=== PATIENT | female | born 1995 | race Caucasian/White ===

== ENCOUNTER 2021-08-30 22:28 | Inpatient (IN) | payer MEDICAID, OTHER ==
--- NOTE | 2021-08-30 23:16 | ED ---
Psych HPI - General Stated Complaint: Mental Health Time Seen by Provider: 08/30/21 22:36 Source: RN notes reviewed, old records reviewed Limitations: no limitations - History of Present Illness Initial Comments: This is a 25-year-old female to the emergency department for evaluation today. Patient's very elevated and argumentative on initial evaluation. Patient presents from [place] for suicidal ideation. Patient not participating history taking MD Complaint: suicidal ideation, feels depressed -: unknown Associated Psychiatric Symptoms: depression, suicidal ideation History of same: Yes Quality: constant, getting worse Improves With: none Worsens With: none Context: significant life stressor (Going through rehabilitation) Associated Symptoms: denies other symptoms Treatments Prior to Arrival: placed on mental health hold If Self Harm: admits thoughts of self harm - Related Data Allergies Allergy/AdvReac Type Severity Reaction Status Date / Time No Known Allergies Allergy Verified 08/31/21 00:06 Review of Systems ROS Statement: Those systems with pertinent positive or pertinent negative responses have been documented in the HPI. ROS Other: All systems not noted in ROS Statement are negative. General Exam General appearance: alert, in no apparent distress Head exam: Present: atraumatic, normocephalic, normal inspection Eye exam: Present: normal appearance, PERRL, EOMI. Absent: scleral icterus, conjunctival injection, periorbital swelling ENT exam: Present: normal exam, mucous membranes moist Neck exam: Present: normal inspection. Absent: tenderness, meningismus, lymphadenopathy Respiratory exam: Present: normal lung sounds bilaterally. Absent: respiratory distress, wheezes, rales, rhonchi, stridor Cardiovascular Exam: Present: regular rate, normal rhythm, normal heart sounds. Absent: systolic murmur, diastolic murmur, rubs, gallop, clicks GI/Abdominal exam: Present: soft, normal bowel sounds. Absent: distended, tenderness, guarding, rebound, rigid Extremities exam: Present: normal inspection, full ROM, normal capillary refill. Absent: tenderness, pedal edema, joint swelling, calf tenderness Back exam: Present: normal inspection Neurological exam: Present: alert, oriented X3, CN II-XII intact Psychiatric exam: Present: normal affect, normal mood Skin exam: Present: warm, dry, intact, normal color. Absent: rash Course Vital Signs 08/30/21 08/31/21 08/31/21 23:17 00:20 01:40 Temperature 98.7 F Pulse Rate 64 82 71 Respiratory 16 18 16 Rate Blood Pressure 117/75 121/77 115/71 O2 Sat by Pulse 99 98 98 Oximetry 08/31/21 08/31/21 03:51 04:31 Temperature Pulse Rate 64 70 Respiratory 16 18 Rate Blood Pressure 109/67 111/68 O2 Sat by Pulse 98 97 Oximetry - Reevaluation(s) Reevaluation #1: 08/31/21 01:27 Medical record is reviewed Reevaluation #2: 08/31/21 01:27 Medically clear for psychiatric evaluation Medical Decision Making - Medical Decision Making 25 female to the emergency department for evaluation. Patient will be transferred for inpatient psychiatric evaluation and treatment Disposition Clinical Impression: Depression, Suicidal ideation, Acute anxiety Disposition: TRANSFER TO PSYCH HOSP/UNIT Condition: Fair Is patient prescribed a controlled substance at d/c from ED?: No
[2021-08-31] MEDS ORDERED: LORazepam 1 MG TAB PO STA (00:07)
[2021-08-31] MEDS ORDERED: MAG HYDROX/AL HYDROX/SIMETH 30 ML CUP PO PRN (02:48)
[2021-08-31] MEDS ORDERED: HALOPERIDOL LACTATE 5 MG/ML 1 ML VIAL IM PRN (02:48)
[2021-08-31] MEDS ORDERED: ACETAMINOPHEN TAB 325 MG TAB PO PRN (02:48)
[2021-08-31] MEDS ORDERED: MAGNESIUM HYDROXIDE 2,400 MG/10 ML CUP PO PRN (02:48)
[2021-08-31] MEDS ORDERED: LORazepam 2 MG/ML INJ IM PRN (02:52)
[2021-08-31] MEDS ORDERED: haloperidoL 5 MG TAB PO PRN (05:07)
[2021-08-31] MEDS: LORazepam 1 MG TAB PO PRN (05:13)
[2021-08-31] MEDS ORDERED: hydrOXYzine pamoate 25 MG CAP PO PRN (06:00)
[2021-08-31] MEDS: NICOTINE 21MG/24HR PATCH TRANSDERM STA ×2 (09:51→09:56)
[2021-08-31] MEDS: NICOTINE 14MG/24HR PATCH TRANSDERM SCH (09:52)
--- NOTE | 2021-08-31 10:36 | P.HP ---
Psychiatric H&P - . H&P Date: 08/31/21 History & Physical: Allergies Allergy/AdvReac Type Severity Reaction Status Date / Time No Known Allergies Allergy Verified 08/31/21 00:06 Vital Signs Temp 97.3 F L 08/31/21 05:11 Pulse 74 08/31/21 05:11 Resp 18 08/31/21 05:11 BP 117/80 08/31/21 05:11 Pulse Ox 97 08/31/21 05:11 Intake & Output 08/30/21 08/31/21 08/31/21 18:59 06:59 18:59 Weight 52.163 kg Laboratory Last Values Coronavirus (PCR) Not Detected (Not Detectd) 08/31/21 03:00 08/31/21 10:22 Chief complaint: Patient stated that she knows where to hurt herself. She stated she likes the taste of blood. History of present illness: This patient was brought from [facility] where she was admitted for rehabilitation. She became suicidal and was brought to emergency room.This is a 25-year-old female to the emergency department for evaluation. Patient is very agitated and argumentative on initial evaluation. Patient presents from [place] for suicidal ideation. Patient not partic ipating in history taking. Current medications. She refused to provide any history of medications if she was taking any at [place]. Past psychiatric history: She refused to provide any history of mental illness in the past and told me to leave her alone. Substance abuse history: This patient refused to tell me what kind of drugs she was using. She was a however in rehab at [place]. She is withdrawing from a drugs and laying in her room. Medical history: This patient refused to provide any history of full medical problems. Social history: Patient refused to provide any history and refused to talk to me about her upbringing and her history later on. Psychological trauma: Patient refused to provide any history of physical or sexual abuse now or in the past. Mental status: This patient is drowsy but I was a able to wake her up couple times. She is alert and oriented to time place and person. She appears to be of her stated age. She has psychomotor retardation. She is laying in the bed and her hygiene and grooming is poor. She is uncooperative. Her mood is blank. I could not assess her thought content because she does not want to talk. When she talks she talks in a very low monosyllable voice which is composed of mostly single words and has long pauses in between. She is unable to concentrate on things. I cannot assess her recent and remote memory at this time. Her attention span obviously is poor. She has no insight into her problems and her judgment is impaired. Her cognitive functions cannot be assessed at this time. Diagnostic impression: Major depression with suicidal thoughts Treatment plan: She will be maintained on when necessary doses of Haldol and Ativan. She will be given Remeron 45 mg at nighttime. She will be monitored closely on the unit. She will be encouraged to participate in unit activities.
[2021-08-31] MEDS ORDERED: MIRTAZAPINE 45 MG TABLET PO SCH (21:00)
[2021-08-31] MEDS: MIRTAZAPINE 15 MG TAB PO SCH (21:57)
--- NOTE | 2021-09-01 01:21 | P.MDCNMH ---
History of Present Illness H&P Date: 08/31/21 Chief Complaint: medical evaluation 25 year old female with history of depression patient comes in for evaluation due to suicidal ideation , she attempted to cut her left wrist she denies any medical concerns at this time, denies any fever, chills, SOB, CP , abd pain , nausea or vomiting\ she admits to tobacco smoking, alcohol abuse, and marijuana Review of Systems Pertinent positives as noted in HPI. All other systems were reviewed and are negative Past Medical History Past Medical History: No Reported History History of Any Multi-Drug Resistant Organisms: None Reported Past Surgical History: No Surgical Hx Reported Past Psychological History: Unable to Obtain Smoking Status: Current every day smoker Past Alcohol Use History: Abuse Past Drug Use History: Marijuana, Prescription Drug Abuse - Past Family History family Family Medical History: No Reported History Medications and Allergies Allergies Allergy/AdvReac Type Severity Reaction Status Date / Time No Known Allergies Allergy Verified 08/31/21 00:06 Physical Exam Vitals: Vital Signs Temp Pulse Pulse Resp BP BP Pulse Ox 08/31/21 05:11 97.3 F L 74 18 117/80 97 08/31/21 04:31 70 18 111/68 97 08/31/21 03:51 64 16 109/67 98 08/31/21 01:40 71 16 115/71 98 Constitutional: No acute distress, conversant, pleasant Eyes: Anicteric sclerae, moist conjunctiva, Pupils equal round reactive to light ENMT: NC/AT Oropharynx clear, no erythema, or exudates Neck: Supple, FROM, no masses, or JVD No carotid bruits No thyromegaly Lungs: Clear to auscultation Clear to percussion Normal respiratory effort, no accessory muscle use Cardiovascular: Heart regular in rate and rhythm, No murmurs, gallops, or rubs No peripheral edema Abdominal: Soft Nontender, no guarding, rebound or rigidity Abdomen moving with respiration Normoactive bowel sounds No hepatomegaly, No splenomegaly No palpable mass No abdominal wall hernia noted Skin: superficial abrasions over the ventral aspect of left distal forearm , otherwise , Normal temperature, tone, texture, turgor No induration No subcutaneous nodules Extremities: No digital cyanosis No clubbing Pedal pulses intact and symmetrical Radial pulses intact and symmetrical No calf tenderness Psychiatric: Alert and oriented to person, place and time Neuro Muscles Strength 5/5 in all 4 extremities Sensation to light touch grossly present throughout Cranial nerves II-XII grossly intact No focal sensory deficits Lymphatics: no palpable cervical or supraclavicular , or inguinal lymph nodes Cranial Nerve Examination - Cranial Nerves Cranial Nerve II- Optic: Intact Cranial Nerve III- Oculomotor: Intact Cranial Nerve IV- Trochlear: Intact Cranial Nerve V- Trigeminal: Intact Cranial Nerve - Abducens: Intact Cranial Nerve VII- Facial: Intact Cranial Nerve VIII- Auditory: Intact Cranial Nerve IX- Glossopharyngeal: Intact Cranial Nerve X- Vagus: Intact Cranial Nerve XI- Accessory: Intact Cranial Nerve XII- Hypoglossal: Intact Assessment and Plan Assessment: depression and suicidal ideation management per psych follow up blood work medically stable Thank you for allowing us to participate in the care of this patient. We will follow peripherally. Do not hesitate to contact us with questions. Someone can be reached from the [facility] hospitalist group at all hours of the day at [phone].
[2021-09-01 06:58] VITALS: RESP 14
[2021-09-01] MEDS: NICOTINE 14MG/24HR PATCH TRANSDERM SCH (08:37)
[2021-09-01 10:17] LABS: Basophils % (A) 1 %; Eosinophils # (A) 0.2 k/uL (0-0.7); Eosinophils % (A) 4 %; HCT 45.3 % (34.0-46.0); Lymphocytes # (A) 1.4 k/uL (1.0-4.8); Lymphocytes % (A) 31 %; MCH 31.1 pg (25.0-35.0); MCHC 33.2 g/dL (31.0-37.0); MCV 93.6 fL (80.0-100.0); Mean Platelet Volume 7.4; Monocytes # (A) 0.2 k/uL (0-1.0); Monocytes % (A) 5 %; Neutrophils # (A) 2.7 k/uL (1.3-7.7); Neutrophils % (A) 57 %; Platelet Count 249 k/uL (150-450); RBC 4.85 m/uL (3.80-5.40); RDW 13.3 % (11.5-15.5); WBC 4.7 k/uL (3.8-10.6)
[2021-09-01] MEDS: NICOTINE GUM (POLACRILEX) 2 MG GUM BUCCAL PRN ×3 (10:24→18:03)
[2021-09-01 10:37] LABS: ALT 9 U/L (4-34); AST 16 U/L (14-36); African American GFR (CKD) >90 (>60 ml/min/1.73 sqM); Albumin 4.4 g/dL (3.5-5.0); Alkaline Phosphatase 50 U/L (38-126); Anion Gap 10 mmol/L; Blood Urea Nitrogen 17 mg/dL (7-17); Calcium 9.4 mg/dL (8.4-10.2); Carbon Dioxide 24 mmol/L (22-30); Chloride 106 mmol/L (98-107); Glucose 60 mg/dL (74-99); Non-African American GFR(CKD) >90 (>60 ml/min/1.73 sqM); Potassium 4.5 mmol/L (3.5-5.1); Sodium 140 mmol/L (137-145); Total Bilirubin 0.9 mg/dL (0.2-1.3); Total Protein 7.4 g/dL (6.3-8.2)
--- NOTE | 2021-09-01 11:26 | P.PN ---
Progress Note - Text Progress Note Date: 09/01/21 Interval History: Patient was seen in her room and was directable and agreeable to speak with technical report writer. She told me her sister was visiting her today. She continues to be withdrawn and preoccupied and speaks in a very low monotonous voice and is monosyllable. She stated that she slept a lot last night. This patient came from [place] and is still going through drug withdrawal.. At this time patient denies any suicidal or homical ideations, intent or plan. Patient denies any auditory, visual hallucinations and denies any paranoia or delusions. Patient denies any side effects from the medications and has been compliant with meds. Mental Status Exam: General Appearance: Patient appears to be stated age is alert, directable, and cooperative. Behavior: Patient is calmly seated without any agitated behavior. Speech: Patient's speech is fluent and nonpressured. Mood/Affect: Mood is improving mildly, affect is congruent and constricted. Suicidality/Homicidality: Patient denies having any suicidal or homicidal ideation intent or plan. Perceptions: Patient denies any visual hallucinations and denies any auditory hallucinations Though content/process: There is no evidence of any delusional thought content and thought process is linear and goal-directed. Memory and concentration: AOX3, grossly intact for the purposes of this session Judgment and insight: Improving mildly Assessment This patient is still depressed and continues to go through drug withdrawal. She is still ambivalent about suicidal thoughts. Plan: -Patient continues to meet criteria for inpatient psychiatric admission for symptom stabilization and safety. -Medications: Continue medication as before. -When necessary Ativan and Haldol for agitation/aggression. -SW on board for discharge planning. Encouraged the patient to participate in milieu.
[2021-09-01] MEDS: LORazepam 1 MG TAB PO PRN (13:27)
[2021-09-01 16:13] LABS: Chol/HDL Ratio 2.64 Ratio; LDL Cholesterol,Calculated 65.1 mg/dL (0.0-131.0); VLDL Calculation 14.48 mg/dL (5.00-40.00)
[2021-09-01] MEDS: MIRTAZAPINE 15 MG TAB PO SCH (20:26)
[2021-09-02] MEDS: NICOTINE GUM (POLACRILEX) 2 MG GUM BUCCAL PRN ×2 (02:00→06:31)
[2021-09-02] MEDS: LORazepam 1 MG TAB PO PRN (02:38)
[2021-09-02] MEDS: NICOTINE 14MG/24HR PATCH TRANSDERM SCH (07:58)
[2021-09-02 12:35] VITALS: BMI 18.7
[2021-09-02] MEDS ORDERED: QUEtiapine 25 MG TAB PO PRN (13:37)
[2021-09-02] MEDS ORDERED: LORazepam 1 MG TAB PO PRN (13:40)
[2021-09-02] MEDS ORDERED: QUEtiapine 25 MG TAB PO ONE (13:45)
--- NOTE | 2021-09-02 14:39 | P.PN ---
Progress Note - Text Progress Note Date: 09/02/21 Interval History: Patient was seen wandering the hallways and was directable and agreeable to sp sammie with automobile service writer in the office. Patient had several different items including different papers in her hand that she wanted to share with automobile service writer. She claims that she was brought into the hospital because she left [place] to get her "bipolar treated". She claims that she was diagnosed with bipolar disorder several years ago. She states that she has been drinking alcohol heavily for the past 2-3 months and her last drink was about a week ago. She claims that she did not have significant withdrawal symptoms. She states that she wants to get started back on her medications. She had written down several different medications and was complaining about how many medications she was on before she was discharged previously. She claims that she is still having mood instability and claims that "when I get so depressed I just want to cut myself". She states that currently her mood is "great in the middle but worried it could change". She states that she deals with this even when she is sober. She states that she does also have significant anxiety and sometimes panic attacks. She states that she also has nightmares and poor sleep. At this time patient denies any current suicidal or homical ideations, intent or plan. Patient denies any auditory, visual hallucinations and denies any paranoia or delusions. Patient denies any side effects from the medications and has been compliant with meds. Mental Status Exam: General Appearance: Patient appears to be thin, short hair blonde, stated age is alert, directable, and attempts to be cooperative. Behavior: Patient is calmly seated without any agitated behavior. Attempts to be cooperative. Speech: Patient's speech is fluent and nonpressured. Mood/Affect: Mood is improving mildly, affect is congruent and constricted. Suicidality/Homicidality: Patient denies having any suicidal or homicidal ideation intent or plan. Perceptions: Patient denies any visual hallucinations and denies any auditory hallucinations Though content/process: There is no evidence of any delusional thought content and thought process is linear and goal-directed. Rambles at times, tangential. Memory and concentration: AOX3, grossly intact for the purposes of this session Judgment and insight: Poor, Improving mildly Assessment Bipolar disorder, current episode mixed Alcohol use disorder, severe PTSD Cluster B personality traits Nicotine dependence Plan: -Patient continues to meet criteria for inpatient psychiatric admission for symptom stabilization and safety. Patient has signed adult voluntary form and medication consent and was placed in patient's chart. -Medications: Start naltrexone 50 mg daily by mouth for alcohol cravings, start Seroquel 50 mg daily at bedtime with 25 mg daily when necessary for mood stabilization/insomnia. Patient will also be given 1 dose of Seroquel now 25 mg. Vistaril when necessary for anxiety. -When necessary Ativan and Haldol for agitation/aggression. -NRT - nicotine patch -SW on board for discharge planning. Encouraged the patient to participate in milieu. At this time patient is refusing rehab and wants to go to AA meetings instead. Likely discharge in 1-2 days once patient has more stabilized mood and will be going back to her family's house.
[2021-09-02] MEDS: NALTREXONE HCL 50 MG TAB PO SCH (14:41)
[2021-09-02] MEDS ORDERED: QUEtiapine 50 MG TAB PO SCH (21:00)
[2021-09-03 07:12] VITALS: BP 119/68; PULSE 76; TEMP 97.5
[2021-09-03] MEDS: NICOTINE 14MG/24HR PATCH TRANSDERM SCH (08:59)
[2021-09-03] MEDS: NALTREXONE HCL 50 MG TAB PO SCH (09:00)
[2021-09-03] MEDS ORDERED: busPIRone HCl 5 MG TAB PO SCH (09:45)
--- NOTE | 2021-09-03 09:48 | P.DS ---
Providers Date of admission: 08/31/21 02:12 Expected date of discharge: 09/03/21 Attending physician: Raffaele Godfrey MD Consults: 08/31/21 02:48 Consult Physician Routine Consulting Provider: Des Physician Consult Reason/Comments: h and p Do you want consulting provider notified?: Yes, Notify in am Primary care physician: Sadie Valente, DO - Discharge Diagnosis(es) (1) Bipolar disorder, current episode mixed Current Visit: Yes Status: Acute Priority: High (2) Alcohol use disorder Current Visit: Yes Status: Acute Priority: Medium (3) PTSD (post-traumatic stress disorder) Current Visit: Yes Status: Acute Priority: Medium (4) Cluster B personality disorder Current Visit: Yes Status: Acute Priority: Medium (5) Nicotine dependence Current Visit: Yes Status: Acute Priority: Low Hospital Course: Admission HPI: Admission note was completed by Dr Wolf "Patient stated that she knows where to hurt herself. She stated she likes the taste of blood. This patient was brought from [facility] where she was admitted for rehabilitation. She became suicidal and was brought to emergency room.This is a 25-year-old female to the emergency department for evaluation. Patient is very agitated and argumentative on initial evaluation. Patient presents from [facility] for suicidal ideation. Patient not participating in history taking. She refused to provide any history of medications if she was taking any at [facility]." Hospital course: Upon admission to the unit patient was directable and agreeable to commence treatment and signed adult voluntary form . Patient got along well with other patients on the unit and followed unit protocol. Patient was compliant with the medications and denied any side effects throughout hospital course. Patient was started on naltrexone 50 mg by mouth daily for alcohol cravings, Seroquel 50 mg daily at bedtime for mood stabilization/insomnia. Patient was also started on BuSpar 15 mg twice a day for anxiety and Ativan when necessary for anxiety. Patient spoke of her stressors and engaged in therapy both group and individual. Patient was also seen by medical team for history and physical exam. Throughout the course of the hospitalization patient gradually improved with regards to mood, anxiety, sleep and returned back to their baseline level of functioning. On the day of discharge patient denied any suicidal or homicidal ideations intent or plan denied any auditory or visual hallucinations. Patient endorsed wanting to live for her health and her future. The patient denied any access to guns or weapons. Patient denied any paranoia and did not endorse any delusions. Patient does have a significant history of substance abuse and was counseled on abstaining from all substances including alcohol and marijuana. Patient was offered however declined inpatient substance-abuse rehab. Patient claims that she would rather partake in AA meetings as an outpatient instead of going to inpatient rehab. She was also agreeable to start naltrexone by mouth for her cravings. Patient was also counseled on the medications and need for regular compliance and was encouraged to follow-up with their outpatient appointment for mental health and also for primary care. Prior to discharge a family meeting will be arranged by social sciences instructor to answer any questions and ensure safety upon discharge. Mental status exam: General Appearance: Patient appears to be thin, short hair, stated age is alert, pleasant, and cooperative. Patient is in no acute distress and has improved hygiene and grooming Behavior: Patient is calmly seated without any agitated behavior. Speech: Patient's speech is fluent and nonpressured. Mood/Affect: Patient reports their mood is "better", affect is congruent Suicidality/Homicidality: Patient denies having any suicidal or homicidal ideation intent or plan. Perceptions: Patient denies any auditory or visual hallucinations. Though content/process: There is no evidence of any delusional thought content and thought process is linear and goal-directed. more future oriented Memory and concentration: AOX3, grossly intact for the purposes of this session. Can spell "WORLD" backwards correctly. Judgment and insight: chronically poor, however has improved with guarded pro gnosis Impression: Bipolar disorder, current episode mixed Alcohol use disorder severe PTSD Cluster B personality traits Nicotine dependence Plan: -Continue with discharge today as patient has improved and stabilized psychiatrically and is not currently an imminent threat to herself and/or others. Patient will remain at chronically elevated risk for harm to self and/or others due to her impulsivity and substance abuse. -Continue medications: Naltrexone by mouth 50 mg daily for alcohol cravings, Seroquel 50 mg daily at bedtime for mood stabilization/insomnia, BuSpar 15 mg twice a day for anxiety, will be given 3 days of Ativan 0.5 mg daily when necessary for anxiety. -Patient was counseled on the need for medication compliance and appropriate follow-up at mental health and also primary care for medical issues. Patient verbalized understanding and agreed. -Social work to arrange for and conduct family meeting to ensure safety upon discharge and answer any questions/concerns. Social work also to arrange for patients follow up appointments for psychiatric care along with follow up with primary care provider. -Patient counseled on abstaining from recreational drugs and marijuana and alcohol. Was informed/educated on the adverse effects on their physical and mental health. Patient verbally agreed and understood. Patient was offered substance abuse treatment however declined at this time. -Patient was instructed to return to the hospital or seek immediate medical care if their psychiatric or medical symptoms do worsen or reoccur. Allergies Allergy/AdvReac Type Severity Reaction Status Date / Time No Known Allergies Allergy Verified 08/31/21 00:06 Laboratory Results WBC 4.7 k/uL (3.8-10.6) 09/01/21 09:42 RBC 4.85 m/uL (3.80-5.40) 09/01/21 09:42 Hgb 15.0 gm/dL (11.4-16.0) 09/01/21 09:42 Hct 45.3 % (34.0-46.0) 09/01/21 09:42 MCV 93.6 fL (80.0-100.0) 09/01/21 09:42 MCH 31.1 pg (25.0-35.0) 09/01/21 09:42 MCHC 33.2 g/dL (31.0-37.0) 09/01/21 09:42 RDW 13.3 % (11.5-15.5) 09/01/21 09:42 Plt Count 249 k/uL (150-450) 09/01/21 09:42 MPV 7.4 09/01/21 09:42 Neutrophils % 57 % 09/01/21 09:42 Lymphocytes % 31 % 09/01/21 09:42 Monocytes % 5 % 09/01/21 09:42 Eosinophils % 4 % 09/01/21 09:42 Basophils % 1 % 09/01/21 09:42 Neutrophils # 2.7 k/uL (1.3-7.7) 09/01/21 09:42 Lymphocytes # 1.4 k/uL (1.0-4.8) 09/01/21 09:42 Monocytes # 0.2 k/uL (0-1.0) 09/01/21 09:42 Eosinophils # 0.2 k/uL (0-0.7) 09/01/21 09:42 Basophils # 0.0 k/uL (0-0.2) 09/01/21 09:42 Sodium 140 mmol/L (137-145) 09/01/21 09:42 Potassium 4.5 mmol/L (3.5-5.1) 09/01/21 09:42 Chloride 106 mmol/L (98-107) 09/01/21 09:42 Carbon Dioxide 24 mmol/L (22-30) 09/01/21 09:42 Anion Gap 10 mmol/L 09/01/21 09:42 BUN 17 mg/dL (7-17) 09/01/21 09:42 Creatinine 0.78 mg/dL (0.52-1.04) 09/01/21 09:42 Est GFR (CKD-EPI)AfAm >90 (>60 ml/min/1.73 sqM) 09/01/21 09:42 Est GFR (CKD-EPI)NonAf >90 (>60 ml/min/1.73 sqM) 09/01/21 09:42 Glucose 60 mg/dL (74-99) L 09/01/21 09:[address] Glu mg/dL 96 09/01/21 09:42 Hemoglobin A1c 5.0 % (0.0-6.0) 09/01/21 09:42 Calcium 9.4 mg/dL (8.4-10.2) 09/01/21 09:42 Total Bilirubin 0.9 mg/dL (0.2-1.3) 09/01/21 09:42 AST 16 U/L (14-36) 09/01/21 09:42 ALT 9 U/L (4-34) 09/01/21 09:42 Alkaline Phosphatase 50 U/L (38-126) 09/01/21 09:42 Total Protein 7.4 g/dL (6.3-8.2) 09/01/21 09:42 Albumin 4.4 g/dL (3.5-5.0) 09/01/21 09:42 Triglycerides 72.40 mg/dL (0.00-149.00) 09/01/21 09:42 Cholesterol 128.00 mg/dL (0.00-200.00) 09/01/21 09:42 LDL Cholesterol, Calc 65.1 mg/dL (0.0-131.0) 09/01/21 09:42 VLDL Cholesterol, Calc 14.48 mg/dL (5.00-40.00) 09/01/21 09:42 HDL Cholesterol 48.40 mg/dL (40.00-60.00) 09/01/21 09:42 Cholesterol/HDL Ratio 2.64 Ratio 09/01/21 09:42 TSH 0.683 mIU/L (0.465-4.680) 09/01/21 09:42 Coronavirus (PCR) Not Detected (Not Detectd) 08/31/21 03:00 Vital Signs Temp 97.5 F L 09/03/21 07:12 Pulse 76 09/03/21 07:12 Resp 14 09/01/21 06:55 BP 119/68 09/03/21 07:12 Pulse Ox 98 09/03/21 07:12 Intake & Output 09/02/21 09/03/21 09/03/21 18:59 06:59 18:59 Weight 51 kg Patient Condition at Discharge: Stable Plan - Discharge Summary New Discharge Prescriptions: New busPIRone HCL [Buspar] 15 mg PO BID 30 Days tablet Naltrexone HCl [Revia] 50 mg PO DAILY 30 Days tab QUEtiapine [SEROquel] 50 mg PO HS 30 Days tab LORazepam [Ativan] 0.5 mg PO DAILY PRN 3 Days #3 tab PRN Reason: Anxiety Nicotine 14Mg/24Hr Patch [Habitrol] 1 patch TRANSDERM DAILY 14 Days patch Nicotine Gum (Polacrilex) [Nicorette] 2 mg BUCCAL Q4HR PRN 28 Days PRN Reason: Nicotine Cravings Discharge Medication List LORazepam [Ativan] 0.5 mg PO DAILY PRN 3 Days #3 tab 09/03/21 [Rx] Naltrexone HCl [Revia] 50 mg PO DAILY 30 Days tab 09/03/21 [Rx] Nicotine 14Mg/24Hr Patch [Habitrol] 1 patch TRANSDERM DAILY 14 Days patch 09/03/21 [Rx] Nicotine Gum (Polacrilex) [Nicorette] 2 mg BUCCAL Q4HR PRN 28 Days 09/03/21 [Rx] QUEtiapine [SEROquel] 50 mg PO HS 30 Days tab 09/03/21 [Rx] busPIRone HCL [Buspar] 15 mg PO BID 30 Days tablet 09/03/21 [Rx] Follow up Appointment(s)/Referral(s): Sadie Valente DO [Primary Care Provider] - 1-2 days Activity/Diet/Wound Care/Special Instructions: Activity and diet as tolerated. Avoid the use of street drugs and alcohol. Take all medications as prescribed. When you are in need of refills on your medications please contact your medical provider and/or outpatient psychiatrist to have this done. Please go to scheduled outpatient appointment for aftercare treatment. If symptoms return or become worse, call the crisis line at and/or go to the nearest emergency room for evaluation Discharge Disposition: HOME SELF-CARE
== END 2021-09-03 15:00 | disposition home or self-care (01) | DRG 881 ==
LOC: EC 22:28 → 3MHU 08-31 02:12
PROVIDERS: ADMIT Psychiatry & Neurology Psychiatry; ATTEND Psychiatry & Neurology Psychiatry
DX: F32.9 Major depressive disorder, single episode, unspecified (principal); F19.239 Other psychoactive substance dependence with withdrawal, unspecified; R45.851 Suicidal ideations; F10.20 Alcohol dependence, uncomplicated; F17.200 Nicotine dependence, unspecified, uncomplicated; F31.60 Bipolar disorder, current episode mixed, unspecified; F41.0 Panic disorder [episodic paroxysmal anxiety]; F43.10 Post-traumatic stress disorder, unspecified; F60.89 Other specific personality disorders; G47.00 Insomnia, unspecified; Z79.899 Other long term (current) drug therapy; Z20.822 Contact with and (suspected) exposure to COVID-19
CPT/HCPCS: 80053; 80061; 82075; 83036; 84443; 85025; 87635; 99285